=== PATIENT | female | born 1955 | race African-American/Black ===

== ENCOUNTER 2017-02-23 20:05 | Emergency (ER) | payer MEDICAID ==
[~2017-02-23] VITALS: Ht 162.6 cm; Wt 90.7 kg
[2017-02-23 23:01] VITALS: BP 163/100
== END 2017-02-23 23:01 | disposition home or self-care (01) ==
LOC: ED 20:05
DX: S86.812A Strain of other muscle(s) and tendon(s) at lower leg level, left leg, initial encounter (principal); W01.0XXA Fall on same level from slipping, tripping and stumbling without subsequent striking against object, initial encounter; Y93.89 Activity, other specified; Y99.8 Other external cause status; Y92.89 Other specified places as the place of occurrence of the external cause
CPT/HCPCS: J1885